=== PATIENT | male | born 1970 | race Caucasian/White ===

== ENCOUNTER 2017-12-13 23:05 | Emergency (ER) | payer OTHER ==
[~2017-12-13] VITALS: Ht 175.3 cm; Wt 135.6 kg
[2017-12-13 23:12] VITALS: Ht 175.3 cm; Wt 135.6 kg
[2017-12-14 00:59] VITALS: BP 140/99
== END 2017-12-14 00:59 | disposition home or self-care (01) ==
LOC: ED 23:05
DX: L02.31 Cutaneous abscess of buttock (principal)
CPT/HCPCS: J0690

== ENCOUNTER 2018-02-01 13:30 | Emergency (ER) | payer OTHER ==
[~2018-02-01] VITALS: Ht 175.3 cm; Wt 132.0 kg
[2018-02-01 13:36] VITALS: Ht 175.3 cm; Wt 132.0 kg
[2018-02-01 15:11] LABS: BASOPHIL % 0.3 % (0-2); PLATELET COUNT 236 x10^3mcL (130-400)
[2018-02-01 15:31] LABS: CALCIUM 8.6 mg/dL (8.5-10.1); CARBON DIOXIDE 24.9 mmol/L (21-32); CHLORIDE SERUM 106 mmol/L (98-107); GFR1 > 60 mL/min; GLUCOSE SERUM 103 mg/dL (74-106); POTASSIUM SERUM 3.9 mmol/L (3.5-5.1); SODIUM SERUM 141 mmol/L (136-145)
[2018-02-01 15:37] LABS: ALBUMIN 3.5 g/dL (3.4-5.0); ALKALINE PHOSPHATASE 79 U/L (46-116); ALT/SGPT 38 U/L (16-63); AST/SGOT 18 U/L (15-37); BILIRUBIN TOTAL 0.42 mg/dL (0.20-1.00); TOTAL PROTEIN, SERUM 7.5 g/dL (6.4-8.2); URIC ACID 6.7 mg/dL (3.5-7.2)
[2018-02-01 15:38] VITALS: BP 131/79
[2018-02-01 16:01] LABS: CHOLESTEROL 208 mg/dL (<200); HDL CHOLESTEROL 28 mg/dL (40-60)
== END 2018-02-01 16:15 | disposition home or self-care (01) ==
LOC: ED 13:30
PROVIDERS: Emergency Medicine
DX: R53.1 Weakness (principal); R42 Dizziness and giddiness
CPT/HCPCS: 36415